=== PATIENT | female | born 1995 | race Caucasian/White ===

== ENCOUNTER 2024-07-06 08:57 | Outpatient (CLI) | payer MEDICAID, SELFPAY ==
--- NOTE | 2024-07-06 09:11 | XR_ITS ---
Examination: Complete OB ultrasound greater than 14 weeks Date and time of exam: July 06, 2024 at 0920 hours INDICATIONS: Unknown size and dates Findings: Viable intrauterine single fetus with single amniotic sac presentation cephalic Cardiac motion 130 bpm Placenta fundal posterior grade 3 Umbilical cord insertion seen Amniotic fluid index 15.8 cm Cervix 3.3 cm Ovaries obscured by bowel gas. Composite estimated gestational age based on BPD, head circumference, abdominal circumference, femur length is 36 weeks 4 days Estimated weight 2912 g. Survey of intracranial anatomy, spinal anatomy, abdominal anatomy, four-chamber heart performed with no abnormalities identified. Impression: Viable intrauterine gestation cephalic presentation Estimated gestational age 36 weeks 4 days Estimated weight 2912 g.
[2024-07-06 09:29] VITALS: RESP 16; TEMP 36.7; O2SAT 99; BMI 24.7
[2024-07-06 09:41] VITALS: BP 121/84; PULSE 86
--- NOTE | 2024-07-06 11:01 | PD.LDPN ---
Documentation for date of: 07/06/24 OB Labor Progress Note Assessment and Plan Comments: Triage Note Patient is a 29yo with SIUP at 39w2d by 24 week ultrasound (dates changed from LMP 10/28/23 which gave EDC 08/03/24) presenting to L&D per Dr. Tripp for growth scan and discussion regarding timing of delivery. She has had no regular/painful ctx, no lof, no vaginal bleeding. She feels normal movement. She is anxious because she has had extreme difficulty accessing care. She notes trying multiple offices in the surrounding area, but no one accepted her care despite her best efforts. She recently saw Dr. Tripp for an ob visit and he sent her in today for delivery planning. Initially, patient desired TOLAC. However, she understands that TOLAC is not an option at [facility] because anesthesiology is not in-house 27/12. She would like to discuss her options. Records from Dr. Tripp's office show office visits with him in Mar 2024 as well as one on 04/11/24 (Covid+) and anatomy/dating scan 03/26/24. [facility] records requested and appears no PN labs were done. History: OB: . Current : This is complicated by insufficient care and late dating of . Hx of prior section. 03/26/2024 antomy/growth scan at [facility]: SIUP, cephalic, +FCA, grade 2 posterior placenta, cervix 3.7cm, composite estimated gestational age: 24w5d, weight 711g. Anatomy scan shows no abnormalities. Previous pregnancies: G1: 04/05/14, 40wk [id number] G2-G4 early sab, no interventions G5: 12/14/19, 36wk section for breech/PTL, 6lb9oz. Patient notes receiving general anesthesia. She had palpitations which lead to workup with cardiology that showed enlarged atria with mitral regurg and abnormal cardiac rhythm that completely resolved after (she notes cardiology cleared her after). G6&7 early sab, no interventions PMhx: childhood asthma, no longer uses inhaler. SVT as a teenager that resolved. PShx: section 2019, wisdom teeth extracted Family hx: mother at age 39 related to cardiac etiology. Sister has a-fib. Social: denies alcohol, tobacco, illicit drug use. [employer] now, previously an emergency dispatcher. Meds: PNV, zofran prn Allergies: toradol and tylenol with codeine cause headache/nausea/vomiting Sexologist: pap cytology normal but HPV positive 03/2024, no STDs ROS negative other than what was described above. Vitals wnl, afebrile General: well developed, well nourished, no acute distress, conversant Cardiac: normal heart rate Lungs: breathing without distress Abdomen: soft, gravid, non-tender, no rebound or guarding NST declined Radiology: Complete OB ultrasound greater than 14 weeks Date and time of exam: July 06, 2024 at 0920 hours INDICATIONS: Unknown size and dates Findings: Viable intrauterine single fetus with single amniotic sac presentation cephalic Cardiac motion 130 bpm Placenta fundal posterior grade 3 Umbilical cord insertion seen Amniotic fluid index 15.8 cm Cervix 3.3 cm Ovaries obscured by bowel gas. Composite estimated gestational age based on BPD, head circumference, abdominal circumference, femur length is 36 weeks 4 days Estimated weight 2912 g. Survey of intracranial anatomy, spinal anatomy, abdominal anatomy, four-chamber heart performed with no abnormalities identified. Impression: Viable intrauterine gestation cephalic presentation Estimated gestational age 36 weeks 4 days Estimated weight 2912 g. Assessment: Patient is a 29yo with SIUP at 39w2d by 24 week ultrasound (dates changed from LMP 10/28/23 which gave EDC 08/03/24) with history of prior section and need for delivery planning. Vitals wnl, benign exam. Reassuring status based on ultrasound only- she declined NST even after recommendation for NST was explained in detail. Plan: -Discussed history of care and current findings with patient. Discussed that TOLAC is not an option at [facility], but repeat section is which we can schedule. Discussed TOLAC would need to be performed at higher level of care facility in [place] and the logistics of that occurring (she could go with ROM or in labor, but would need to drive an hour). After discussing all of the options at length, she would like to schedule RLTCS for Jul (her date of choice) at 40w1d by the 24wk dating ultrasound (in the very unlikely event that true gestational age is more concordant with EDC 08/03 based on LMP, she would be 36w6d on Jul- we discussed the remote possibility of prematurity and need for NICU care). She voiced her concerns regarding the quality of care she will receive at [facility] and I reassured her that she will receive excellent care- she was very unhappy with being asleep during her last and not feeling present for her child's . She felt she was over-sedated afterwards with pain medications as well. We discussed how this can be mitigated, though there is no 100% guarantee she won't need some sedation during the procedure based on quality of spinal anesthesia's effect. She voiced her understanding. She notes strong desire to avoid not only unnecessary interventions, but also unnecessary investigations (such as labs and testings). I will defer to filing or registry clerk's recommendations after delivery for infant, but I explained the need for routine labs especially including blood type and CBC to determine starting and post-op H/H. We discussed possibility for blood transfusion if she has significant anemia post-operatively and she does not want a blood transfusion, but will consider further. RN was present for the encounter today and assisted with scheduling section for Jul. -Discussed to arrive 0530 on Jul for planned 0730 start time. NPO for 8 hours prior. -Recommended NST once again to ensure well-being before patient left, but patient adamantly declined and signed the AMA form. -She declines cardiology follow up at this time since she states she is asymptomatic (no palpitations during this ) -Discussed return precautions Sona Victoria MD
== END 2024-07-06 10:55 | disposition home or self-care (01) ==
LOC: S4S1 08:59 → S4SX 08:59
PROVIDERS: Referring Provider Obstetrics & Gynecology; Visit Provider Obstetrics & Gynecology
DX: Z36.89 Encounter for other specified antenatal screening (principal); Z34.83 Encounter for supervision of other normal pregnancy, third trimester; Z3A.36 36 weeks gestation of pregnancy
CPT/HCPCS: 76805

== ENCOUNTER 2024-07-06 14:20 | Inpatient (IN) | payer BC, MEDICAID, SELFPAY ==
[2024-07-06] VITALS (68 sets, daily range): BP systolic 122–177; BP diastolic 57–93; PULSE 68–109; TEMP 36.5–37.6; O2SAT 88–100
[2024-07-06] MEDS: LIDOCAINE HCL 1% 20 ML VIAL INFL ×2 (15:10→15:48)
[2024-07-06] MEDS: OXYTOCIN in NS 20 units 20 UNIT/1,000 ML BAG 125 UNIT IV (15:13)
[2024-07-06] MEDS: METHYLERGONOVINE INJ 0.2 MG/ML VIAL IM (15:17)
[2024-07-06] MEDS: OXYTOCIN INJ 10 UNIT/ML VIAL IM (15:20)
[2024-07-06] MEDS: MISOPROSTOL 200 mCg TABLET 800 MCG PR (15:31)
--- NOTE | 2024-07-06 15:44 | PD.LDHP ---
Documentation for date of: 07/06/24 OB Labor/Induct. HPI History of Present Illness Chief complaint: painful contractions : 8 Term pregnancies: 1 pregnancies: 1 Living children: 2 History of Abortions: Spontaneous and Elective: 5 History of Vaginal deliveries: 1 History of sections: Yes (1) Gestational Age (weeks): 39 Gestational Age (days): 2 History of present illness: Patient presents with regular/painful ctx. No LOF, no vaginal bleeding. Feels normal movement. History of Present Dating criteria: based on 2nd trimester US only (24 week ultrasound) Adequate Care: No Ultrasounds: normal mid trimester US Narrative: Patient is a 29yo with SIUP at 39w2d by 24 week ultrasound (dates changed from LMP 10/28/23 which gave EDC 08/03/24) presenting to L&D with painful, regular ctx. No lof, no vaginal bleeding. She feels normal movement. She has had extreme difficulty accessing care. She notes trying multiple offices in the surrounding area, but no one accepted her care despite her best efforts. She recently saw Dr. Tripp for an ob visit and he sent her in earlier today for growth scan and delivery planning. Initially, patient desired TOLAC, but we had discussed in triage earlier today that TOLAC is not an option at [facility] because anesthesiology is not in-house 27/12. After triage visit today she wished to schedule RLTCS on Jul 12, which we did prior to discharge. She declined NST as she felt it was an unnecessary investigation, even after counseling. Within a few hours, she returned stating an urge to push with painful ctx. Records from Dr. Tripp's office show office visits with him in Mar 2024 as well as one on 04/11/24 (Covid+) and anatomy/dating scan 03/26/24. [facility] records requested and appears no PN labs were done in this . History: OB: . Current : This is complicated by insufficient care and late dating of . Hx of prior section. 03/26/2024 antomy/growth scan at [facility]: SIUP, cephalic, +FCA, grade 2 posterior placenta, cervix 3.7cm, composite estimated gestational age: 24w5d, weight 711g. Anatomy scan shows no abnormalities. Previous pregnancies: G1: 04/05/14, 40wk 8rm15sd G2-G4 early sab, no interventions G5: 12/14/19, 36wk section for breech/PTL, 6lb9oz. Patient notes receiving general anesthesia. She had palpitations which lead to workup with cardiology that showed enlarged atria with mitral regurg and abnormal cardiac rhythm that completely resolved after (she notes cardiology cleared her after). G6&7 early sab, no interventions PMhx: childhood asthma, no longer uses inhaler. SVT as a teenager that resolved. PShx: section 2019, wisdom teeth extracted Family hx: mother at age 39 related to cardiac etiology. Sister has a-fib. Social: denies alcohol, tobacco, illicit drug use. SAHM now, previously an emergency dispatcher. Meds: PNV, zofran prn Allergies: toradol and tylenol with codeine cause headache/nausea/vomiting Costuming Supervisor: pap cytology normal but HPV positive 03/2024, no STDs Review of Systems Review of Systems Narrative Review of Systems: Review of Systems Systems Reviewed: All systems reviewed, normal except as documented Constitutional Constitutional: Denies body ache(s), Denies chills, Denies fever(s) and Denies headache(s) ENT Ears, Nose, Mouth, and Throat: Denies headache(s) and Denies vertigo Cardiovascular Cardiovascular: Denies chest pain, Denies palpitations, Denies dyspnea and Denies syncope Respiratory Respiratory: Denies cough, Denies dyspnea Gastrointestinal Gastrointestinal: Denies nausea and Denies vomiting Neurologic Neurologic: Denies convulsions, Denies headache(s), Denies other visual disturbances, Denies syncope and Denies vertigo Past Medical History Surgical History SURGICAL: Positive Section (1) Past Medical History Comments PMH COMMENT: See above. Meds Home Medications and Allergies Home Medications ?Medication ?Instructions ?Recorded ?Confirmed ?Type vits no.130-ferrous fum 1 tab PO QDAY 07/06/24 07/06/24 History 27 mg iron-folic acid 800 mcg tablet ( Vitamin) Allergies Allergy/AdvReac Type Severity Reaction Status Date / Time codeine Allergy Mild HEADACHE Verified 07/06/24 09:14 ketorolac tromethamine Allergy Mild Abdominal Verified 07/06/24 09:14 Pain ondansetron AdvReac Intermediate HEADACHE Verified 07/06/24 09:14 OB Exam Physical Exam Vital signs: Pulse BP Pulse Ox 72 132/72 H 100 07/06/24 15:37 07/06/24 15:37 07/06/24 15:41 Narrative: General: well developed, well nourished, having painful contractions with desire to push Cardiac: normal heart rate Lungs: breathing without distress Abdomen: soft, gravid, non-tender, no rebound or guarding Extremities: no pain with palpation of calves Detailed Labor and Delivery Exam Dilation (cm): 10 Effacement (%): 100 Cervix position: anterior station: 0 Presentation: Vertex Membranes: intact (AROM performed soon after arrival to facilitate delivery, thin meconium noted) Amniotic fluid: thin meconium Baseline heart rate: 115 monitor accelerations: 15x15 monitor decelerations: Early alf variability: Moderate (11-25) Contraction frequency (min): q5min OB Results Impressions Impression: Complete OB ultrasound greater than 14 weeks Date and time of exam: July 06, 2024 at 0920 hours INDICATIONS: Unknown size and dates Findings: Viable intrauterine single fetus with single amniotic sac presentation cephalic Cardiac motion 130 bpm Placenta fundal posterior grade 3 Umbilical cord insertion seen Amniotic fluid index 15.8 cm Cervix 3.3 cm Ovaries obscured by bowel gas. Composite estimated gestational age based on BPD, head circumference, abdominal circumference, femur length is 36 weeks 4 days Estimated weight 2912 g. Survey of intracranial anatomy, spinal anatomy, abdominal anatomy, four-chamber heart performed with no abnormalities identified. Impression: Viable intrauterine gestation cephalic presentation Estimated gestational age 36 weeks 4 days Estimated weight 2912 g. OB Assessment & Plan Assessment and Plan (1) Active labor at term: Status: Acute Assessment and plan: Patient is a 29yo with SIUP at 39w2d by 24 week ultrasound presenting in active labor with history of section. Regular/painful contractions, SCE: complete/complete/0 with patient pushing. Thin meconium upon AROM. Vitals wnl, benign exam. Reassuring assessment. PMhx/ complicated by: Insufficient care. No PN labs done. History of prior for breech presentation Cardiac hx: She had palpitations with 2nd which lead to workup with cardiology that showed enlarged atria with mitral regurg and abnormal cardiac rhythm that completely resolved after (she notes cardiology cleared her after). No palpitations in this . Plan: -Admit to L&D -Establish IV, routine labs -CEFM -Telephone Directory Distributor Driver/consent re: unintended -GBS status: unknown, will notify nutrition worker -Anticipate vaginal delivery -Safe to proceed (2) History of delivery: Status: Acute (3) Insufficient care: Status: Acute (3) Insufficient care Qualifiers: Trimester: third trimester Qualified Code(s): O09.33 - Supervision of with insufficient care, third trimester
--- NOTE | 2024-07-06 16:08 | PD.LDDELS ---
Data ([place]) Data Hx Section: Yes (1) Reason for Primary Section: breech : 8 Para: 2 Term: 2 : 0 Livin : 5 Delivery Data ([facility]) Labor Data ROM Date: 07/06/24 ROM Time: 14:26 Rupture Type: AROM Delivery Data Labor Onset Stage 1 Date: 07/06/24 Labor Onset Stage 1 Time: 13:30 Labor Onset Stage 2 Date: 07/06/24 Labor Onset Stage 2 Time: 14:20 Delivery Date: 07/06/24 Delivery Time: 15:01 Placenta Delivery Date: 07/06/24 Placenta Delivery Time: 15:07 Delivered by: Sona Victoria Delivery nurse: Arlyn Burns Other staff at delivery: Nursery Nurse Other staff at delivery: RT Other staff at delivery: Mary Grace Sheldon Delivery Method Delivery: Vaginal Delivery Type: Spontaneous Anesthesia Type Primary Anesthesia: Local EBL Estimated blood loss (ml): 300 Complications Complications: Patient is a 29yo [id number] s/p uncomplicated at 39w2d after presenting in active labor, delivering at 1501 on 07/06/2024. On presentation, SCE was C/C/0 and patient had unavoidable urge to push. AROM performed, thin meconium noted. With good maternal pushing efforts, infant's head delivered OA and restituted MAYKEL. Left anterior shoulder delivered easily followed by posterior shoulder and corpus. Footling nuchal cord x2 reduced. had spontaneous cry and was vigorous. Apgars 9/9. placed on maternal abdomen where nose/mouth were suctioned and dried/stimulated. After approximately 1 minute, cord was clamped x2 and cut by FOB. Cord blood collected for typing. With fundal massage and cord traction, placenta delivered spontaneously and intact with 3 vessel centrally inserted cord. Bimanual massage performed with fundus then firm at u-2cm and hemostasis noted. Inspection of perineum and vagina revealed small 1st degree midline perineal laceration and bilateral labial lacerations which were repaired with 4-0 vicryl in routine fashion with total reapproximation and hemostasis. Small trickle of blood, so sweep just within cervix/BELEN performed which retrieved a small amount of clot. 0.2mg IM methergine given as well as IM pitocin (since IV was occluded) with observed hemostasis after. 800mcg RI cytotec placed at the end of the procedure for prophylaxis against future bleeding. All counts correct x2. Mom and were doing well when I left the room. Sona Victoria MD [place] Data ([facility]) Data Infant Gender: Male Infant Weight Grams: 3130 1 Minute Total: 9 5 Minute Total: 9
--- NOTE | 2024-07-06 17:31 | PC.NURSE ---
pt declines type and screen, cbc, vaccines, cord blood, vaccines and wants to see all labels of blood drawn that dr nieves ordered and nothing else to be drawn due to pt beliefs.
[2024-07-06 17:54] LABS: HIV (1&2) Antibody Rapid Non-Reactive
[2024-07-06 18:29] LABS: Hepatitis B Surface Antigen Non Reactive (Non React)
[2024-07-06 18:38] LABS: Syphilis Nonreactive (Nonreactive)
--- NOTE | 2024-07-06 19:58 | PD.LDDS ---
DS: Providers Provider Date of admission: 07/06/24 14:20 Primary care physician: Jesus Calzada MD Admitting Provider: Sona Victoria MD Attending Provider on Admission: Sona Victoria MD Consults: 07/06/24 15:39 Referral Routine Comment: Attending Provider on DC: Sona Victoria MD Discharging Provider: Sona Victoria MD DS: Diagnosis Discharge Diagnosis (1) , delivered: Status: Acute (2) Insufficient care: Status: Acute (3) History of delivery: Status: Acute (4) Active labor at term: Status: Acute Problem List Completed Was Problem List Reviewed/Reconciled?: Yes Summary/Hosp Course Brief History: Patient is a 29yo [id number] s/p uncomplicated at 39w2d after presenting C/C/0 and pushing, delivering at 1501 on 07/06/24. She has had an uncomplicated immediate course and adamantly desires discharge home. Refuses to stay the standard 24hr, because she does not care to be in a hospital setting any longer than she has to be. She refused all labs other than those mandated by the percussion welding machine operator to be able to release baby. I recommended that she have a CBC to check H/H before and after , but she refuses since any testing she feels unnecessary is against her beliefs . She is ambulating without lightheadedness, tolerating regular diet no n/v, spontaneously voiding without issue. She has no chest pain or shortness of breath. No fevers or chills. Vitals normal, benign exam. Immediately after delivery she had some elevated bp's related to hormonally mediated rigors (likely made more significant by prophylactic cytotec)- but all of that resolved and bp's are back to baseline now, all normotensive. She is hemodynamically stable clinically with no evidence of infection. Peripartum Data Procedures: Procedures Operation Date: 07/12/24 07:45 <No data on this case meets the specified criteria> Status at Discharge Functional status at discharge: independent ambulation Overall status at discharge: patient is back to baseline Time Spent with Patient Time attestation: Total time spent providing and/or coordinating discharge services: Exam Vital Signs Temp Pulse BP Pulse Ox O2 Flow Rate 97.7 F 83 135/71 H 99 10 07/06/24 15:07 07/06/24 19:52 07/06/24 19:52 07/06/24 17:06 07/06/24 14:50 Narrative Exam General: well developed, well nourished, no acute distress, conversant Cardiac: normal heart rate Lungs: breathing without distress Abdomen: soft, post-gravid, non-tender, no rebound or guarding, fundus firm at u-3cm Extremities: no edema of BLE Discharge Plan Plan Patient Disposition: HOME (Self Care) Patient condition on transfer: Stable Prescriptions/Referrals Prescriptions/Med Rec: New ibuprofen 800 mg tablet 800 mg PO Q8H PRN (Reason: See Comments) 10 Days Qty: 30 0RF No Action Vitamin 27 mg iron- 800 mcg tablet 1 tab PO QDAY Referrals: Jesus Calzada MD [Primary Care Provider] - Patient/Caregiver Discharge Instructions Discharge Activity: activity as tolerated and other Other Discharge Activity Instructions:: Vaginal rest and no heavy lifting > 10 pounds for 6 weeks. Other Discharge Diet Instructions: Regular Education Materials: After a Vaginal , Vaginal After Print Language: Polish Activity Restrictions/Additional Instructions: Follow up for visit in 4 weeks, call obgyn office for appointment Stand Alone Forms: Cate Award Info., Patient Portal Info Letter Discharge Order Discharge Orders: Discharge (Routine); Ordered 07/06/24 Ordered By: Sona Victoria Planned Discharge Date 07/06/24 (2) Insufficient care Qualifiers: Trimester: third trimester Qualified Code(s): O09.33 - Supervision of with insufficient care, third trimester
--- NOTE | 2024-07-06 20:14 | PC.NURSE ---
on 07/06/2024 at [facility] 2013 spoke with patient about possibility of an in n out catheter however patient adamantly refused any invasive procedure, she also refused to sit down on the toilet to attempt to urinate. this nurse explained risks of urinary retention and refusal of aids such as in n out catheters to help relieve urine. she asked if she is not able to pee what were her other options; this nurse offered patient to speak with charge nurse for more clarification. patient accepted offer to speak with charge nurse. Charge nurse made aware of request to speak with patient and at bedside at this time.
--- NOTE | 2024-07-06 23:10 | PC.NURSE ---
per Dr. Victoria orders this nurse attempted to rescan bladder appx two hours after initial scan, patient refused stating that she was beginning to feel the urge to pee. and she would attempt to pee on her own. charge nurse notified and made aware. patient also asked for iv to be removed. educated her on need for keeping iv in the event of an emergency and verbalized she has the right to refuse and the iv only needed to stay in during labor. iv removed at 0017.
[2024-07-07] VITALS: BP 130/84; PULSE 80; RESP 20; TEMP 37.7; O2SAT 97
--- NOTE | 2024-07-07 01:46 | PC.NURSE ---
NURSING STAFF HAS EXPRESSED CONCERNS TO PT REGARDING URINE OUTPUT. PT STATES THAT SHE WENT TO USE THE RESTROOM BUT URINE DIDN'T MAKE IT INTO THE HAT BECAUSE I'M SO TALL. HAM ROLLING MACHINE OPERATOR PERFORMED BLADDER SCAN SHOWING 795ML. EXPLAINED TO PT THAT IT IS PROTOCOL TO PERFORM A STRAIGHT CATH TO EMPTY BLADDER, BUT PT IS REFUSING THE CATHETER. THIS RN EXPLAINED TO PT THE CONCERNS REGARDING URINE RETENTION AND OFFERED TO DO A STRAIGHT CATH, EXPLAINED TO PT THAT IF SHE IS AVOIDING URINATING DUE NOT WANTING A DRUG SCREEN TO BE DONE THEN THIS RN CATH DO A STRAIGHT CATH AND DUMP THE URINE IN THE TOILET BUT PT IS STILL REFUSING THE STRAIGHT CATH. PT IS AWARE THAT THIS CAN CAUSE HER BLADDER TO RUPTURE AND INCREASES RISK OF UTERINE BLEEDING. PT STATES I'M NOT REFUSING THE DRUG SCREEN, I WANT TO PEE SO I CAN GET OUT OF HERE.
--- NOTE | 2024-07-07 01:50 | PC.NURSE ---
notified Dr. Victoria that patient finally agreed to have bladder scanned after patient verbalized she voided on her own but was unable to collect in hat because of the way she was sitting on the toilet. this nurse asked her why she didnt call this nurse at the time of using restroom and patient verbalized because she didnt have time . patient rescanned at 0146 and bladder scan showed 795ml of urine. per dr. Victoria rescan in an hour and call her back with results.
--- NOTE | 2024-07-07 01:51 | PC.NURSE ---
When Dr. Victoria was called at 0150; this nurse asked if she could come in and talk to patient and verbalized that she wants to wait until she hears back with results of bladder scan. charge nurse notified of presence request and reply of
--- NOTE | 2024-07-07 03:33 | PC.NURSE ---
Bladder scan completed at 0300 by this nurse showed apprx 783ml of urine; per patient she feels the urge to pee asked patient if i could assist her to the toilet and per patient she said she would call me in ten minutes also asked if i could fundal message her utures but she refused. at 0330 this nurse as if i could rescan her after she forgot to call this nurse again, and claiming she was able to void. bladder scan measured appx 907ml of urine. Dr. Victoria called and aware of findings, presence requested to speak with patient and MD verbalized she was going to come to unit
--- NOTE | 2024-07-07 03:45 | PC.NURSE ---
on unit at 0345 made aware of low grade fever, patient perspiring, and refusal of fundals. attempted to enter room, but patient is currently in shower will attempt to speak with patient once out of shower.
--- NOTE | 2024-07-07 04:09 | EVENTNT_ITS ---
Documentation for date of: 07/07/24 Event Note Event Note: Voiding dysfunction Patient was not discharged last night because she truly hadn't voided. [employer] Tender needs urine testing for NG/CT and UDS before baby can be discharged. RN has been interacting with patient overnight to try to get her to void, but each time she stated she was able to void a little , it would not be in the hat. Bladder scan was ultimately performed and showed 500cc- it was recommended to patient to have in and out catheterization performed, but she refused because she doesn't want any invasive procedures . She continued to state she was voiding in the toilet, but missing the hat. Each time bladder scan showed slow increase over time. RN and discharge planner counseled patient multiple times regarding recommendation for catheterization and she refused. Plan most recently when bladder scan showed approx 700cc with patient still refusing catheterization was to repeat in 1 hour and call me with results. RN called and stated patient again voided small amount, but still bladder scan now up to 906cc. I came to discuss with patient and she was in the shower. When she was out of shower and was dressed and in bed again, she stated in the shower she had a coughing episode and urinated a large amount. We repeated bladder scan and now read 517cc. She had been refusing fundal checks, but allowed at this time and fundus was firm at u-3cm. She notes her lochia has been like a period, as expected. I discussed with her that 500cc post-void residual is NOT normal. I recommended placing an indwelling lai catheter to let the bladder drain and rest for the morning, but she adamantly refuses. She states she routinely went 12 hours without voiding in the past and that not voiding for long time intervals is normal for her. She does not have pain currently and feels that 500cc post-void residual is not concerning, despite my counseling. Plan for now is to repeat bladder scan in 3 hours at change of shift. We are still waiting on a urine sample for lab testing as well. I discussed that I can not discharge her if she continues to have high post-void residual because it could lead to nerve injury of the bladder with chronic inability to void and UTIs in the future or if bladder becomes distended enough, she could have bladder rupture requiring emergency surgery to repair. She continues to decline lai after counseling. Sona Victoria MD
[2024-07-07 04:15] VITALS: BP 144/68; PULSE 95; RESP 20; TEMP 37.5; O2SAT 97
--- NOTE | 2024-07-07 04:25 | PC.NURSE ---
at 0400 Dr. fishman and this nurse at patient bedside; patient reports she was able to urinate in the shower. this nurse asked patient if i could bladder scan her again to ensure adaquate urine output and patient agreed. bladder scan perfomed and completed and volume of urine measured at 516ml; Dr. fishman aware and at bedside discussing plan of care, indwelling catheter offered by Dr. Fishman and educated risk vs benefits of inadaquately emptying out the bladder i.e. bladder rupture. ligament and nerve damage, and possible need for surgery etc patient refused and verbalizes understanding of possible risk. Due to patient able to have some urine output. Dr. Fishman asked patient if she agrees to be scanned again in the morning after change of shift. patient agreed. charge nurse notified and aware of plan of care.
[2024-07-07 07:25] VITALS: BP 127/86; PULSE 82; RESP 18; TEMP 36.8; O2SAT 98
[2024-07-07] MEDS: IBUPROFEN TAB 400 MG TABLET 800 MG PO (09:29)
--- NOTE | 2024-07-07 10:56 | PC.SS ---
STEEL RIGGER and HOME SECURITY ALARM INSTALLER Radha met with pt at bedside due to nurse Summer and Doctor Lance Sheridan having concerns about baby. Pt stated that she recieves WIC, and [employer] [place] as a form of government assistance. Pt stated that she does not have a history of alcohol, substance use, and mental health. Pt stated that she did have a CPS case about 4 yeas ago but did not want to share why she had an opened CPS case. Pt stated that she lives at home that address is on [facility] but she will be moving with JANUARY Tabares [phone] [place] [address] in [place]. Pt stated that she has good support system, has 2 other boys at home a 10, and 4 year old. Pt stated that she has all essentials for baby at home and will be taking baby to .
[2024-07-07 11:00] VITALS: BP 129/90; PULSE 74; RESP 18; TEMP 36.6; O2SAT 98
--- NOTE | 2024-07-07 14:05 | PC.NURSE ---
Rayna Mercedes with [facility] here to see patient
[2024-07-07] MEDS: ACETAMINOPHEN 325 MG TABLET 650 MG PO (14:35)
[2024-07-07 15:45] VITALS: BP 121/87; PULSE 76; RESP 18; TEMP 36.8; O2SAT 98
[2024-07-07 17:29] LABS: Amphetamine/Metham Scrn,Ur OB Negative (Negative); Benzoylecgonine Screen, Ur OB Negative (Negative); Opiate Screen,Urine OB Negative (Negative); THC Screen,Urine OB Negative (Negative)
--- NOTE | 2024-07-07 19:30 | PC.NURSE ---
1924 CPS worker Rayna Mercedes stated patient is cleared to be released.She reviewed saftey plan with patient and pt stated she would follow up with Dr Coulter for baby.
[2024-07-07 20:08] VITALS: BP 130/87; PULSE 68; RESP 18; TEMP 36.5; O2SAT 98
[2024-07-08 07:56] LABS: Chlamydia trachomatis PCR Negative (Not Detect); Neisseria Gonorrhoeae DNA PCR Negative (Not Detect); Trichomonas Negative (Negative)
== END 2024-07-07 20:39 | disposition home or self-care (01) | DRG 807 ==
LOC: S4SX 17:09 → S4NX 21:19
PROVIDERS: Admitting Provider Obstetrics & Gynecology; PCP Family Medicine; Visit Provider Obstetrics & Gynecology
DX: O34.219 Maternal care for unspecified type scar from previous cesarean delivery (principal); Z37.0 Single live birth; Z3A.39 39 weeks gestation of pregnancy; O69.81X0 Labor and delivery complicated by cord around neck, without compression, not applicable or unspecified; O77.0 Labor and delivery complicated by meconium in amniotic fluid; O70.0 First degree perineal laceration during delivery; R03.0 Elevated blood-pressure reading, without diagnosis of hypertension; O9A.23 Injury, poisoning and certain other consequences of external causes complicating the puerperium; T47.1X5A Adverse effect of other antacids and anti-gastric-secretion drugs, initial encounter; Y92.230 Patient room in hospital as the place of occurrence of the external cause
CPT/HCPCS: 36415; 59409; 80307; 85025; 86703; 86780; 86850; 86900; 86901; 87340; 87491; 87591; 87661; 94762; J2210; J2590; J3490; S0191; A9270